=== PATIENT | female | born 1990 | race Caucasian/White ===

== ENCOUNTER 2024-04-09 16:59 | Emergency (ER) | payer OTHER ==
[~2024-04-09] VITALS: Ht 165.1 cm; Wt 58.4 kg
[2024-04-09] MEDS ORDERED: IBLOOD GLUCOSE TEST STRIP 1 EA TEST VI ONE (17:30)
[2024-04-09 17:33] LABS: BASOPHILS 0.6 % (0-2); EOSINOPHILS 3.7 % (0-6); HEMOGLOBIN 13.1 g/dL (12.0-18.0); MCH 30.3 (27-36); MCHC 33.7 g/dl (30-36); MCV 90.2 fl (81-99); MONOCYTES 9.7 % (0-12); PLATELET COUNT 211 K/uL (140-440); RBC 4.33 M/ul (4.3-5.7); RDW 12.9 (10.5-15.0)
[2024-04-09 17:52] LABS: ALBUMIN 3.9 g/dL (3.4-5.0); ALBUMIN/GLOBULIN RATIO 1.22 (1.1-2.4); ALCOHOL, MEDICAL <3 ng/dL (<3); ALKALINE PHOSPHATASE 44 U/L (46-116); ALT (SGPT) 20 U/L (14-59); ANION GAP 9.7 (7-21); AST (SGOT) 19 U/L (15-37); BILIRUBIN, TOTAL 0.3 ng/dL (0.2-1.0); BUN/CREATININE RATIO 14.58 (6.0-28.6); CARBON DIOXIDE 32 mmol/L (21-32); CHLORIDE 103 mmol/L (98-107); CREATININE, SERUM 0.96 mg/dL (0.55-1.02); GLOMERULAR FILTRATION RATE,EST 80 mL/min (>60); POTASSIUM 3.7 mmol/L (3.5-5.1); PROTEIN, TOTAL 7.1 g/dL (6.4-8.2); UREA NITROGEN 14 mg/dL (7-18)
[2024-04-09] MEDS ORDERED: SODIUM CHLORIDE 0.9% 1,000 ML IV PRN (18:00)
[2024-04-09 20:07] VITALS: BP 103/68
--- NOTE | 2024-04-09 22:04 | EKG ---
[facility] [address] [place] [address] Signed Sinus tachycardia Otherwise normal ECG No previous ECGs available Confirmed by Kacey Adam MD () on 04/09/2024 10:04:12 PM Electronically Signed By: KACEY ADAM MD 04/09/242203 PATIENT NAME: SWATI BAUGH Electrocardiogram DATE OF : [birth year] PHYSICIAN: KACEY ADAM MD REPORT #: [id number] REPORT IS CONFIDENTIAL AND NOT TO BE RELEASED WITHOUT AUTHORIZATION
== END 2024-04-09 20:10 | disposition home or self-care (01) ==
LOC: ED 16:59
PROVIDERS: Emergency Medicine
DX: F11.10 Opioid abuse, uncomplicated (principal)
CPT/HCPCS: 36415; 80053; 80307; 84484; 84703; 85025; 93005; 93010; 96360; 99285-25; G0480; J7030

== ENCOUNTER 2024-12-25 00:11 | Emergency (ER) | payer OTHER ==
[~2024-12-25] VITALS: Ht 165.1 cm; Wt 60.0 kg
[2024-12-25 02:10] VITALS: BP 110/63
== END 2024-12-25 02:11 | disposition home or self-care (01) ==
LOC: ED 00:11
DX: O36.8120 Decreased fetal movements, second trimester, not applicable or unspecified (principal); Z3A.15 15 weeks gestation of pregnancy; Z88.5 Allergy status to narcotic agent
CPT/HCPCS: 76815; 99284-25

== ENCOUNTER 2025-02-03 05:16 | Emergency (ER) | payer OTHER ==
[~2025-02-03] VITALS: Ht 165.1 cm; Wt 64.8 kg
[2025-02-03] MEDS ORDERED: PRENATAL FORMU1 EAC3 PO (05:31)
[2025-02-03 05:44] LABS: BLOOD/HGB, URINE NEGATIVE (Negative); KETONE, URINE NEGATIVE (Negative); LEUK ESTERASE, URINE LARGE (negative); NITRITE, URINE POSITIVE (negative)
[2025-02-03] MEDS ORDERED: FUROSEMIDE 20 MG/2 ML VIAL IV ONE (05:45)
[2025-02-03 05:49] LABS: BACTERIA, URINE 4+ /hpf (negative); CASTS, URINE NONE SEEN \\lpf; CRYSTALS, URINE NONE SEEN (0-1+); EPITHELIAL CELLS, URINE SQUAMOUS 1+ /lpf (0-1+); REFLEX CULTURE, URINE Yes (No)
[2025-02-03 06:17] LABS: BASOPHILS 0.1 % (0.1-1.2); EOSINOPHILS 0.1 % (0.7-5.8); LYMPHOCYTES 10.6 % (19.3-51.7); MCH 30.5 PG (25.6-32.2); MCHC 34.2 g/dL (32.2-35.5); MCV 89.3 fL (79.4-94.8); MONOCYTES 12.5 % (4.7-12.5); NEUTROPHILS 76.2 % (34.0-71.1); RBC 3.08 M/uL (3.93-5.22)
[2025-02-03 06:42] LABS: ALT (SGPT) 13.0 U/L (14-59); AST (SGOT) 10.0 U/L (15-37); GLOMERULAR FILTRATION RATE,EST 128.0 mL/min (>60); PROTEIN, TOTAL 5.7 g/dL (6.4-8.2); UREA NITROGEN 12.0 mg/dL (7-18)
[2025-02-03] MEDS ORDERED: MACROBID 100 M100 MG PO (07:15)
[2025-02-03] MEDS ORDERED: NITROFURANTOIN MONOHYD MACROCR 100 MG HOME.PACK PO ONE (07:15)
[2025-02-03 07:44] VITALS: BP 98/61
== END 2025-02-03 07:45 | disposition home or self-care (01) ==
LOC: ED 05:16
PROVIDERS: Emergency Medicine
DX: O99.412 Diseases of the circulatory system complicating pregnancy, second trimester (principal); O23.42 Unspecified infection of urinary tract in pregnancy, second trimester; I50.9 Heart failure, unspecified; Z3A.21 21 weeks gestation of pregnancy; Z79.899 Other long term (current) drug therapy; Z88.5 Allergy status to narcotic agent
CPT/HCPCS: 36415; 71045; 80053; 81001; 83880; 85025; 87088; 96374; 99285-25; J1938